=== PATIENT | male | born 1940 | race Caucasian/White ===

== ENCOUNTER 2022-05-15 01:38 | Outpatient (CLI) | payer BC, SELFPAY ==
[2022-05-15] MEDS: Barium Sulfate 2% W/V-Berry Smoothie 450 ML BTL PO ×2 (08:34→08:35)
[2022-05-15 08:50] LABS: BUN 28 mg/dL (7-18); CREATININE 1.1 mg/dL (0.70-1.30); Estimated GFR 67.02 (mL/min/1.73m2)
--- NOTE | 2022-05-15 10:00 | DI.CT_ITS ---
Exam(s) CT ABDOMEN PELVIS W EXAM: CT ABDOMEN PELVIS W CLINICAL HISTORY: LYMPHADENOPATHY, EVAL FOR CHANGES FROM CT 10/11/21. TECHNIQUE: Imaging Protocol: Axial computed tomography images with coronal and sagittal reformatted images were created and reviewed CONTRAST MATERIAL: Intravenous: Omnipaque 350 Contrast volume:100 ml Oral: yes / COMPARISON: CT CT CHEST WO from 04/11/[address] ABDOMEN PELVIS WO from 10/11/2021 FINDINGS: ABDOMEN: Lung Bases: Limited evaluation due to respiratory motion and dependent changes. Small nodules are ag ain noted at both lung bases. Heart is enlarged. Pacemaker leads noted Liver: Normal density. No measurable mass. Gallbladder and biliary tract: No radiodense calculus or dilation. Pancreas: Normal density, no abnormal calcifications or inflammatory process. Spleen: Normal. Kidneys: Normal size, contour and axis. No radiodense stones or obstructive uropathy. No masses seen. Adrenal glands: No masses seen. Abdominal Aorta: Abdominal portion non-dilated. PELVIS: Bladder: Diffuse wall thickening. Right lateral diverticulum. 3 millimeter stone in dependent porti on. Bowel: Large quantity of stool. Sigmoid diverticulosis. No evidence of diverticulitis no obstructio n or bowel wall thickening. Appendix normal. Peritoneal cavity: Interval increase in size of multiple mesenteric lymph nodes, the the largest now measuring 2.2 cm, compared with 1.3 cm on the previous exam. Stable size of retroperitoneal conglome ration of lymph nodes. No ascites, collection or mesenteric inflammatory response. Bones: Within normal limits for age. Reproductive organs: Prostate markedly enlarged. Lymph nodes: Unremarkable. Impression: Interval increase in size mesenteric lymph nodes. Stable appearance of retroperitoneal lymph nodes. Roughly stable appearance of bilateral lower lobe pulmonary nodules. RADIATION DOSE DELIVERED: 818.57mGy.cm Total DLP DATA REPOSITORY: All CT scans at this facility are submitted to the National Radiology Data Registry (NRDR) Dose Index Registry (DIR) with the [employer] (ACR). RADIATION OPTIMIZATION: All CT scans at this facility use at least one of these dose optimization te chniques: automated exposure control; mA and/or kV adjustment per patient size (includes targeted exa ms where dose is matched to clinical indication); or iterative reconstruction.
[2022-05-15] MEDS: Normal Saline - Diluent 50 ML VIAL IJ (10:11)
[2022-05-15] MEDS: Omnipaque 350 MG/ML 500 ML BTL-Imaging package 100 ML IJ (10:12)
[2022-05-15] MEDS: Normal Saline Flush 10 ML SYR IVP (10:13)
== END 2022-05-15 01:58 ==
PROVIDERS: PCP Internal Medicine; Visit Provider Internal Medicine
DX: R91.8 Other nonspecific abnormal finding of lung field (principal); R59.0 Localized enlarged lymph nodes
CPT/HCPCS: 84520; 74177; 82565

== ENCOUNTER 2022-09-28 11:44 | Emergency (ER) | payer BC, SELFPAY ==
--- NOTE | 2022-09-28 11:45 | DI.RAD_ITS ---
Exam(s) XR KNEE LT 3V AP,LAT,JO EXAM: XR KNEE LT 3V AP,LAT,JO CLINICAL HISTORY: blunt trauma. TECHNIQUE: 2D digital imaging was performed of the left knee. Three images were obtained. Merchant ,AP, lateral and PA tunnel views were obtained. COMPARISON: No exams were available for comparison FINDINGS: BONES: No acute fracture is present. No bony destructive lesion is seen. JOINTS: The knee is normally aligned. No joint effusion is seen. Mild degenerative changes are seen i n the knee with periarticular spurring and joint space narrowing most marked in the lateral femoral t ibial joint. SOFT TISSUE: There is soft tissue swelling anterior to the patella. IMPRESSION: Soft tissue swelling anterior to the patella but no fracture or dislocation. DATA REPOSITORY: RADIATION DOSE DELIVERED:
[2022-09-28 11:50] VITALS: BP 148/98; PULSE 65; RESP 16; TEMP 36.6; O2SAT 99
--- NOTE | 2022-09-28 12:00 | ED.GENADUL_ITS ---
Discharge Plan Disposition Patient Disposition: Home Discharge Details Clinical Impression: Traumatic hematoma of left knee Primary Care Provider: Mell Coffey ED Provider: Delonte Galindo Home Meds and New Rx's Prescriptions: Continued atorvastatin 80 mg tablet 80 mg PO DAILY zolpidem 5 mg tablet 5 mg PO QHS PRN sildenafil [Viagra] 100 mg tablet 100 mg PO DAILY PRN Rx Instructions: administer 30 minutes to 4 hours before activity Eliquis 5 mg tablet 5 mg PO BID finasteride 5 mg tablet 5 mg PO DAILY Patient Comments: TAKE 1 TABLET BY MOUTH EVERY DAY Discontinued tamsulosin 0.4 mg capsule 0.4 mg PO DAILY Patient Comments: no longer taking 09/28/22 CT albuterol sulfate [Proventil HFA] 90 mcg/actuation HFA aerosol inhaler 2 puff inhalation Q4H PRN Patient Comments: no longer taking 09/28/22 CT fluticasone propionate 50 mcg/actuation spray,suspension 1 spray intranasal DAILY Patient Comments: no longer taking 09/28/22 CT Rx Instructions: administer into each nostril Discharge Instructions Instructions: Hematoma (ED) Additional Instructions: Please use the Junior wrap to help provide some swelling relief. You may continue to take your normally prescribed medications and return for any new or significant worsening of symptoms otherwise follow-up with orthopedist if not improving in the next week. Referrals: [facility] [Provider Group] - 1 week (If not improving please call the office for arrangement of follow-up appointment) Medical Decision Making Patient presenting to the emergency department for chief complaint of left knee injury. Patient reports 1 week ago he had blunt trauma to the knee which since then he has noted increased swelling pain and discomfort along with ecchymosis. Patient is on apixaban and does state easily bruising but otherwise denies all other injury or trauma. Physical exam shows significant swelling and ecchymosis to the left anterior knee but I feel is mostly infrapatellar. Patient does have diffuse tenderness but is able to walk ambulate and fully flex and extend knee. Exam is otherwise unremarkable. We will perform radiological imaging given some bony tenderness to proximal tibia. Pending radiological imaging results I did speak with Dr. Jensen about patient case and do feel that patient can be followed up on outpatient basis for hematoma. He did recommend that patient use Junior wrap which he was provided. Due to delay in radiologist interpretation and significant length of stay will discharge patient given that he is weightbearing ambulatory and otherwise has no worrisome findings. Patient encouraged to call the orthopedic office if not following up in the next week or return for new or worsening symptoms. After discussion of diagnosis and plan of care patient has no further needs, questions, or concerns and states clear understanding to return to the emergency department for any worsening symptoms. After patient was discharged I did review radiological imaging that shows anterior soft tissue swelling but no other abnormal findings noted by ra diologist. I do not feel this changed his disposition. This documentation was generated using [employer] system, please disregard any oddities of phrase or misspellings. Imaging Data Radiologic Study: Attestation: I personally reviewed and interpreted this imaging study as follows: Imaging: X-Ray Radiologist's impression: Exam(s) XR KNEE LT 3V AP,LAT,JO EXAM: XR KNEE LT 3V AP,LAT,JO CLINICAL HISTORY: blunt trauma. TECHNIQUE: 2D digital imaging was performed of the left knee. Three images were obtained. Merchant,AP, lateral and PA tunnel views were obtained. COMPARISON: No exams were available for comparison FINDINGS: BONES: No acute fracture is present. No bony destructive lesion is seen. JOINTS: The knee is normally aligned. No joint effusion is seen. Mild degenerative changes are seen in the knee with periarticular spurring and joint space narrowing most marked in the lateral femoral tibial joint. SOFT TISSUE: There is soft tissue swelling anterior to the patella. IMPRESSION: Soft tissue swelling anterior to the patella but no fracture or dislocation. HPI General Mode of arrival: ambulatory . Date/Time Provider Initiated Documentation: 09/28/22 11:52 . Limitations to Documentation: no limitations . Information obtained by: patient and RN notes reviewed . History of Present Illness 82 year old M presents to the emergency department with the chief c omplaint of Left knee injury, described as moderate, Quality is described as aching, and is localized to the left and lower extremity. Patient reports no radiation. Patient started experiencing this week(s) (1) and it has been constant. No relieving factors improve symptom(s), No exacerbating factors reported . Patient notes no other symptoms.. Patient did receive the following treatments prior to arrival, none Related Data Home Medications Medication Instructions Recorded Confirmed atorvastatin 80 mg tablet 80 mg PO DAILY 10/05/21 09/28/22 sildenafil 100 mg tablet (Viagra) 100 mg PO DAILY PRN 10/05/21 09/28/22 zolpidem 5 mg tablet 5 mg PO QHS PRN 10/05/21 09/28/22 apixaban 5 mg tablet (Eliquis) 5 mg PO BID 10/06/21 09/28/22 finasteride 5 mg tablet 5 mg PO DAILY 09/28/22 09/28/22 Allergies Allergy/AdvReac Type Severity Reaction Status Date / Time Penicillins Allergy Verified 09/28/22 11:52 Sulfa (Sulfonamide Allergy Verified 09/28/22 11:52 Antibiotics) General Stated Complaint: Orthopedic MIK: 4 Review of Systems Narrative: 6 systems reviewed and unremarkable except what is marked below. Musculoskeletal Musculoskeletal: Reports as per HPI, Reports arthralgias, Reports joint swelling and Denies limited range of motion Integumentary/Breasts Skin/Breast: Reports unusual bruising Hematologic/Lymphatic Hematologic/Lymphatic: Reports easy bruising PFSH All Active Problems (Updated 09/28/22 @ 14:35 by Delonte Galindo NP) Traumatic hematoma of left knee (Acute) Impacted cerumen of both ears (Acute) Sensorineural hearing loss of both ears (Acute) Medical History Abnormal results of thyroid function studies Asthma with exacerbation Antoine's palsy Bronchitis Bursitis of right shoulder Cardiomyopathy Enlarged prostate with lower urinary tract symptoms (LUTS) Hyperlipidemia Inflammatory polyarthropathy Insomnia Lyme disease, unspecified Memory loss Nonrheumatic aortic (valve) stenosis Osteoarthritis of first carpometacarpal joint, unspecified Otalgia, right ear Other abnormality of red blood cells Paroxysmal A-fib SOB (shortness of breath) Transient global amnesia Social History Smoking/Tobacco Use Status: Never Smoking risk assessment performed?: Yes Alcohol Intake: current Alcohol Intake frequency: holidays/special occasions only Drug use: Never Substance use type: does not use Do you feel safe at home: Yes Do you feel safe in your relationship?: Yes Exam Const General: cooperative, no acute distress and not ill appearing Orientation: alert, awake and oriented x3 HENMT Mouth: moist mucous membranes Resp Effort & Inspection: normal respiratory effort, able to speak in complete sentences and no respiratory distress Skin General skin exam: no rashes or lesions noted Neuro General: patient alert, patient awake, patient oriented x3, moves all extremities and no focal motor deficits Extrem General: normal exam except as noted Left lower extremity: knee Details: tenderness Location: of the patella and of the proximal tibia, swelling Location: of the pre-patellar area and of the infrapatellar area, normal ROM and ecchymosis; no abrasions, no lacerations and no crepitus Course Vital Signs Vital signs: Vital Signs Temperature 36.6 C 09/28/22 11:50 Pulse 65 09/28/22 11:50 Respiratory Rate 16 09/28/22 11:50 Blood Pressure 148/98 H 09/28/22 11:50 Pulse Oximetry 99 09/28/22 11:50 Temperature 36.6 C 09/28/22 11:50 Temperature Source Temporal Artery Scan 09/28/22 11:50 Pulse 65 09/28/22 11:50 Respiratory Rate 16 09/28/22 11:50 Respiratory Effort Normal 09/28/22 11:52 Blood Pressure 148/98 H 09/28/22 11:50 Blood Pressure Position Sitting 09/28/22 11:50 Pulse Oximetry 99 09/28/22 11:50 Oxygen Delivery Method Room Air 09/28/22 11:50 Oxygen Flow Rate 0 09/28/22 11:50 Pain Level 2 09/28/22 11:50 PAWSS Have you Been Recently Intoxicated or Drunk Within the Last 30 days?: No Have you Ever Experienced Previous Episodes of Alcohol Withdrawal?: No Have you ever Experienced Withdrawal Seizures?: No Have you ever Experienced Delirium Tremens(DT)s?: No Have you ever undergone Alcohol Rehabilitation Treatment (i.e, inpt ot outpatient treatment programs)?: No Have you ever Experienced Blackouts?: No Have you ever Combined Alcohol with other Downers within the last 90 days?: No Have you ever Combined Alcohol with any other Substance of Abuse during the last 90 days?: No Result: 0
== END 2022-09-28 14:42 | disposition home or self-care (01) ==
PROVIDERS: Emergency Provider Nurse Practitioner Family; PCP Internal Medicine
DX: S80.02XA Contusion of left knee, initial encounter (principal); X58.XXXA Exposure to other specified factors, initial encounter
CPT/HCPCS: 73562; 99283

== ENCOUNTER 2022-11-03 11:39 | Emergency (ER) | payer BC, SELFPAY ==
[2022-11-03 11:43] VITALS: BP 113/96; PULSE 65; RESP 18; TEMP 36.4; O2SAT 99
--- NOTE | 2022-11-03 12:01 | ED.GENADUL_ITS ---
Discharge Plan Disposition Patient Disposition: Home Discharge Details Clinical Impression: Urinary tract infection Primary Care Provider: Mell Coffey ED Provider: Delonte Galindo Home Meds and New Rx's Prescriptions: New cephalexin 500 mg tablet 500 mg PO QID 7 Days Qty: 28 0RF Continued atorvastatin 80 mg tablet 80 mg PO DAILY zolpidem 5 mg tablet 5 mg PO QHS PRN sildenafil [Viagra] 100 mg tablet 100 mg PO DAILY PRN Rx Instructions: administer 30 minutes to 4 hours before activity Eliquis 5 mg tablet 5 mg PO BID finasteride 5 mg tablet 5 mg PO DAILY Patient Comments: TAKE 1 TABLET BY MOUTH EVERY DAY Discharge Instructions Instructions: Urinary Tract Infection in Men (ED) Additional Instructions: If you develop any new or significant worsening of symptoms feel free to return the emergency department for reassessment. The symptoms would include severe abdominal pain, nausea vomiting, fever chills, or flank pain. Otherwise take antibiotic as prescribed and for the full course. Stay well-hydrated and you can also consider use of cranberry juice to help expedite clearance of your bladder infection. Referrals: Mell Coffey [Primary Care Provider] - Medical Decision Making Patient presenting to the emergency department for chief complaint of urinary urgency, burning, and frequency. Patient states that this started about 1 week ago. He thought it was initially his prostate issues which she has had in the past with urinary retention but he has been voiding everything from his bladder and intermittently using self-catheterization but not getting much out. He still states burning urgency and frequency. Patient denies all other symptoms. Physical exam is unremarkable. I do suspect urinary tract infection but will scan bladder to see how much urine is present and then do straight cath in and out to obtain best specimen. Urinalysis does show signs of infection so will place patient on Keflex. Patient states he believes he has been on this in the past but given penicillin allergy will give first dose and monitor in the ED. Patient had no signs of reaction to Keflex so will prescribe 4 times daily given history of prostate issues with obstruction. Patient was bladder scanned and on staff did say there was only small residual left which I feel is reassuring and that patient does not need Wilcox catheter. After discussion of diagnosis and plan of care patient has no further needs, questions, or concerns and states clear understanding to return to the emergency department for any worsening symptoms. This documentation was generated using [employer] system, please disregard any oddities of phrase or misspellings. Lab Data Lab results reviewed: Yes I reviewed the patient's lab results. HPI General Mode of arrival: ambulatory . Date/Time Provider Initiated Documentation: 11/03/22 11:50 . Limitations to Documentation: no limitations . Information obtained by: patient and RN notes reviewed . History of Present Isael bal 82 year old M presents to the emergency department with the chief complaint of Urinary burning, frequency and urgency, described as moderate and similar to prior episodes, Patient started experiencing this week(s) (1) and it has been constant. No relieving factors improve symptom(s), No exacerbating factors reported . Patient did receive the following treatments prior to arrival, other (Self cath) Related Data Home Medications Medication Instructions Recorded Confirmed atorvastatin 80 mg tablet 80 mg PO DAILY 10/05/21 11/03/22 sildenafil 100 mg tablet (Viagra) 100 mg PO DAILY PRN 10/05/21 11/03/22 zolpidem 5 mg tablet 5 mg PO QHS PRN 10/05/21 11/03/22 apixaban 5 mg tablet (Eliquis) 5 mg PO BID 10/06/21 11/03/22 finasteride 5 mg tablet 5 mg PO DAILY 09/28/22 11/03/22 cephalexin 500 mg tablet 500 mg PO QID 7 days #28 tabs 11/03/22 Previous Rx's Medication Instructions Recorded cephalexin 500 mg tablet 500 mg PO QID 7 days #28 tabs 11/03/22 Allergies Allergy/AdvReac Type Severity Reaction Status Date / Time Penicillins Allergy Verified 09/28/22 11:52 Sulfa (Sulfonamide Allergy Verified 09/28/22 11:52 Antibiotics) General Stated Complaint: Urinary MIK: 3 Review of Systems Constitutional Constitutional: Denies body ache(s), Denies chills, Denies fever(s), Denies malaise and Denies weakness Cardiovascular Cardiovascular: Denies chest pain Respiratory Respiratory: Reports system reviewed and no additional complaints, except as documented Gastrointestinal Gastrointestinal: Denies abdominal pain, Reports constipation, Denies nausea and Denies vomiting Genitourinary Genitourinary: Reports as per HPI, Denies hematuria, Denies difficulty u rinating, Reports dysuria, Reports urinary frequency and Reports urinary urgency Neurologic Neurologic: Denies confusion and Denies weakness Psychiatric Psychiatric: Denies confusion PFSH All Active Problems (Updated 11/03/22 @ 14:04 by Delonte Galindo NP) Urinary tract infection (Acute) Wears hearing aid in both ears (Acute) Impacted cerumen of both ears (Acute) Sensorineural hearing loss of both ears (Acute) Medical History Abnormal results of thyroid function studies Asthma with exacerbation Antoine's palsy Bronchitis Bursitis of right shoulder Cardiomyopathy Enlarged prostate with lower urinary tract symptoms (LUTS) Hyperlipidemia Inflammatory polyarthropathy Insomnia Lyme disease, unspecified Memory loss Nonrheumatic aortic (valve) stenosis Osteoarthritis of first carpometacarpal joint, unspecified Otalgia, right ear Other abnormality of red blood cells Paroxysmal A-fib SOB (shortness of breath) Transient global amnesia Social History Smoking/Tobacco Use Status: Never Smoking risk assessment performed?: Yes Alcohol Intake: current Alcohol Intake frequency: holidays/special occasions only Drug use: Never Substance use type: does not use Housing: house Do you feel safe at home: Yes Do you feel safe in your relationship?: Yes Exam Const General: cooperative and no acute distress Orientation: alert, awake and oriented x3 Resp Effort & Inspection: normal respiratory effort and able to speak in complete sentences Auscultation: clear to auscultation bilaterally Cardio Rate: regular rate Rhythm: regular rhythm Heart Sounds: S1 normal and S2 normal GI Palpation: nontender Back/Spine/Pelvis Back: no CVA tenderness Neuro General: patient alert, patient awake and patient oriented x3 Extrem General: capillary refill normal Course Vital Signs Vital signs: Vital Signs Temperature 36.4 C 11/03/22 11:43 Pulse 65 11/03/22 11:43 Respiratory Rate 18 11/03/22 11:43 Blood Pressure 113/96 H 11/03/22 11:43 Pulse Oximetry 99 11/03/22 11:43 Temperature 36.4 C 11/03/22 11:43 Temperature Source Oral 11/03/22 11:43 Pulse 65 11/03/22 11:43 Respiratory Rate 18 11/03/22 11:43 Respiratory Effort Normal, Non-Labored 11/03/22 11:47 Blood Pressure 113/96 H 11/03/22 11:43 Blood Pressure Position Sitting 11/03/22 11:43 Pulse Oximetry 99 11/03/22 11:43 Oxygen Delivery Method Room Air 11/03/22 11:43 Oxygen Flow Rate 0 11/03/22 11:43
[2022-11-03 12:32] LABS: Bilirubin Small (Negative); Blood Large (Negative); Clarity Cloudy (Clear); Glucose Negative (Negative); Ketones 15 mg/dL (Negative); Leukocyte Esterase Large (Negative); Nitrite Positive (Negative); pH 5.5 (5-8)
[2022-11-03 12:38] LABS: RBC >50 HPF (0-2); WBC >50 HPF (0-5)
[2022-11-03 12:39] LABS: C & S Indicated? Yes
[2022-11-03] MEDS: Cephalexin 500 MG CAP PO (13:20)
[2022-11-03 14:18] VITALS: BP 122/80; PULSE 72; RESP 18; TEMP 37; O2SAT 99
[2022-11-03] MEDS: Cephalexin 500 MG CAP, 4 CAPS/BTL PO (14:19)
--- NOTE | 2022-11-07 08:45 | NUR.NOTE ---
Accessed pt chart to find antibiotic on discharge.Nursing Note:
== END 2022-11-03 16:27 | disposition home or self-care (01) ==
PROVIDERS: Emergency Provider Nurse Practitioner Family; PCP Internal Medicine
DX: N40.1 Benign prostatic hyperplasia with lower urinary tract symptoms (principal); R33.8 Other retention of urine; N39.0 Urinary tract infection, site not specified; I48.0 Paroxysmal atrial fibrillation; Z79.01 Long term (current) use of anticoagulants
CPT/HCPCS: 87077; 99283; 81003; 81015; 87086; 87186

== ENCOUNTER 2022-11-05 07:56 | Emergency (ER) | payer BC, SELFPAY ==
[2022-11-05 08:03] VITALS: BP 124/86; PULSE 65; RESP 16; TEMP 36.4; O2SAT 99
[2022-11-05 08:33] LABS: Clarity Clear (Clear)
[2022-11-05 08:45] LABS: Bacteria Rare HPF (Negative); C & S Indicated? Yes; Casts Negative LPF (Negative); Crystals Negative HPF (Negative); Epithelial Cells Few HPF (Negative); Mucus Trace (Negative); WBC >50 HPF (0-5)
--- NOTE | 2022-11-05 09:24 | ED.GENADUL_ITS ---
Discharge Plan Disposition Patient Disposition: Home Discharge Details Clinical Impression: Urinary tract infection Primary Care Provider: Mell Coffey ED Provider: Delonte Galindo Home Meds and New Rx's Prescriptions: New ciprofloxacin HCl [Cipro] 500 mg tablet 500 mg PO BID 5 Days Qty: 10 0RF Continued atorvastatin 80 mg tablet 80 mg PO DAILY zolpidem 5 mg tablet 5 mg PO QHS PRN sildenafil [Viagra] 100 mg tablet 100 mg PO DAILY PRN Rx Instructions: administer 30 minutes to 4 hours before activity Eliquis 5 mg tablet 5 mg PO BID finasteride 5 mg tablet 5 mg PO DAILY Patient Comments: TAKE 1 TABLET BY MOUTH EVERY DAY Discontinued cephalexin 500 mg tablet 500 mg PO QID 7 Days Qty: 28 0RF Discharge Instructions Instructions: Urinary Tract Infection in Men (ED) Additional Instructions: Please return to the emergency department if you have any new or significant worsening of symptoms otherwise continue to take your new antibiotic as prescribed and you may stop the previous antibiotic. As discussed please monitor for MD muscle pain, tendon pain, or side effects of the new antibiotic and if these occur please stop and contact your primary care provider. If not improving by Sunday or Sunday please contact your primary care provider for reassessment and repeat urinalysis or return to the emergency department if needed. Referrals: Mell Coffey [Primary Care Provider] - Discharge Data Discharge Date/Time-TO BE ENTERED AT DEPARTURE: 11/05/22 09:44 Medical Decision Making Patient presenting to the emergency department for chief complaint of continued burning and frequency of urination in spite of being on antibiotics. Patient was seen by myself 2 days ago and placed upon Keflex for urinary tract infection. Patient states he has been taking the medication as prescribed but has not had any significant benefit from the medication. He has been using cranberry juice and Azo as well. Patient denies any worsening of symptoms just lack of improvement. Physical exam is unremarkable no CVA tenderness, patient stable nontoxic in appearance. Repeat urinalysis was performed and was obscured by the color from the Azo patient was using. Did review urine culture from 2 days ago which did show E. coli infection that was pansensitive. Discussed with patient risk versus benefit of continuing medication versus changing to sergio quinolone given patient's allergies. After discussion patient stated he had been on Cipro in the past and was okay with the risk of the medication. We will start patient on Cipro given no improvement on ceftriaxone and do not feel that it is beneficial to have a change antibiotics within the same category. After discussion of diagnosis and plan of care patient has no further needs, questions, or concerns and states clear understanding to return to the emergency department for any worsening symptoms. This documentation was generated using [employer] dictation system, please disregard any oddities of phrase or misspellings. HPI General Mode of arrival: ambulatory . Date/Time Provider Initiated Documentation: 11/05/22 08:03 . Limitations to Documentation: no limitations . Information obtained by: patient and RN notes reviewed . History of Present Illness 82 year old M presents to the emergency department with the chief complaint of Burning with urination and frequency, Quality is described as burning, and is localized to the genitals. and it has been constant. No relieving factors improve symptom(s), No exacerbating factors reported . Patient notes no other symptoms.. Patient did receive the following treatments prior to arrival, none Related Data Home Medications Medication Instructions Recorded Confirmed atorvastatin 80 mg tablet 80 mg PO DAILY 10/05/21 11/05/22 sildenafil 100 mg tablet (Viagra) 100 mg PO DAILY PRN 10/05/21 11/05/22 zolpidem 5 mg tablet 5 mg PO QHS PRN 10/05/21 11/05/22 apixaban 5 mg tablet (Eliquis) 5 mg PO BID 10/06/21 11/05/22 finasteride 5 mg tablet 5 mg PO DAILY 09/28/22 11/05/22 ciprofloxacin HCl 500 mg tablet 500 mg PO BID 5 days #10 tabs 11/05/22 (Cipro) Previous Rx's Medication Instructions Recorded ciprofloxacin HCl 500 mg tablet 500 mg PO BID 5 days #10 tabs 11/05/22 (Cipro) Allergies Allergy/AdvReac Type Severity Reaction Status Date / Time Penicillins Allergy Verified 09/28/22 11:52 Sulfa (Sulfonamide Allergy Verified 09/28/22 11:52 Antibiotics) General Stated Complaint: Urinary MIK: 4 Review of Systems Constitutional Constitutional: Denies body ache(s), Denies chills, Denies fever(s), Denies malaise and Denies weakness Cardiovascular Cardiovascular: Denies chest pain Respiratory Respiratory: Reports system reviewed and no additional complaints, except as documented Gastrointestinal Gastrointestinal: Denies abdominal pain, Denies nausea and Denies vomiting Genitourinary Genitourinary: Reports as per HPI, Denies hematuria, Reports difficulty urinating, Reports dysuria and Reports urinary urgency Neurologic Neurologic: Denies confusion and Denies weakness Psychiatric Psychiatric: Denies confusion PFSH All Active Problems (Updated 11/05/22 @ 09:28 by Delonte Galindo NP) Urinary tract infection (Acute) Wears hearing aid in both ears (Acute) Impacted cerumen of both ears (Acute) Sensorineural hearing loss of both ears (Acute) Medical History Abnormal results of thyroid function studies Asthma with exacerbation Antoine's palsy Bronchitis Bursitis of right shoulder Cardiomyopathy Enlarged prostate with lower urinary tract symptoms (LUTS) Hyperlipidemia Inflammatory polyarthropathy Insomnia Lyme disease, unspecified Memory loss Nonrheumatic aortic (valve) stenosis Osteoarthritis of first carpometacarpal joint, unspecified Otalgia, right ear Other abnormality of red blood cells Paroxysmal A-fib SOB (shortness of breath) Transient global amnesia Social History Smoking/Tobacco Use Status: Never Smoking risk assessment performed?: Yes Alcohol Intake: current Alcohol Intake frequency: holidays/special occasions only Drug use: Never Substance use type: does not use Housing: apartment Do you feel safe at home: Yes Do you feel safe in your relationship?: Yes Exam Const General: cooperative and no acute distress Orientation: alert, awake and oriented x3 Resp Effort & Inspection: normal respiratory effort and able to speak in complete sentences Auscultation: clear to auscultation bilaterally Cardio Rate: regular rate Rhythm: regular rhythm Heart Sounds: S1 normal and S2 normal GI Palpation: nontender Back/Spine/Pelvis Back: no CVA tenderness Neuro General: patient alert, patient awake and patient oriented x3 Extrem General: capillary refill normal Course Vital Signs Vital signs: Vital Signs Temperature 36.4 C 11/05/22 08:03 Pulse 65 11/05/22 08:03 Respiratory Rate 16 11/05/22 08:03 Blood Pressure 124/86 11/05/22 08:03 Pulse Oximetry 99 11/05/22 08:03 Temperature 36.4 C 11/05/22 08:03 Pulse 65 11/05/22 08:03 Respiratory Rate 16 11/05/22 08:03 Blood Pressure 124/86 11/05/22 08:03 Pulse Oximetry 99 11/05/22 08:03 Oxygen Delivery Method Room Air 11/05/22 08:03 Oxygen Flow Rate 0 11/05/22 08:03 Lab/Test Results Lab/Test Results: 11/05/22 08:25 Urine - Reflex from Ua Urine Culture - Pending Laboratory Tests Range/Units 11/05/22 08:25 Urine Color (Yellow) [place] Urine Clarity (Clear) Clear Urine pH Not Applicable Ur Specific [place] (1.005-1.025) 1.020 Urine Protein Not Applicable Urine Ketones Not Applicable Urine Blood Not Applicable Urine Nitrite Not Applicable Urine Bilirubin Not Applicable Urine Urobilinogen Not Applicable Ur Leukocyte Esterase Not Applicable Urine RBC (0-2) HPF 10-20 H Urine WBC (0-5) HPF >50 H Ur Epithelial Cells (Negative) HPF Few Urine Crystals (Negative) HPF Negative Urine Bacteria (Negative) HPF Rare Urine Casts (Negative) LPF Negative Urine Mucus (Negative) Trace Ur Culture Indicated? Yes Urine Glucose Not Applicable
[2022-11-05] MEDS: Ciprofloxacin 500 MG TAB PO (09:42)
== END 2022-11-05 09:44 | disposition home or self-care (01) ==
PROVIDERS: Emergency Provider Nurse Practitioner Family; PCP Internal Medicine
DX: N39.0 Urinary tract infection, site not specified (principal)
CPT/HCPCS: 99283; 81003; 81015; 87086; 99284

== ENCOUNTER → 2022-12-29 00:31 | Outpatient (CLI) | payer BC, SELFPAY ==
[2022-12-29] MEDS: Barium Sulfate 2% W/V-Berry Smoothie 450 ML BTL PO ×2 (08:37)
[2022-12-29 08:52] LABS: CREATININE 1.1 mg/dL (0.70-1.30); Estimated GFR 66.61 (mL/min/1.73m2)
--- NOTE | 2022-12-29 10:01 | DI.CT_ITS ---
Exam(s) CT ABDOMEN PELVIS W EXAM: CT ABDOMEN PELVIS W CLINICAL HISTORY: LYMPHADENOPATHY R59.0 TECHNIQUE: Imaging Protocol: Axial computed tomography images with coronal and sagittal reformatted images were created and reviewed CONTRAST MATERIAL: Intravenous: Omnipaque 350 Contrast volume:100 mL Oral: Yes COMPARISON: CT CT ABDOMEN PELVIS WO from 10/11/[address] ABDOMEN PELVIS W from 05/15/2022 FINDINGS: ABDOMEN: Lung Bases: The distal ends of cardiac pacing device wires are seen. There nodules again seen in the lung bases. Liver: Normal density. No measurable mass. Portal, Superior Mesenteric, and Splenic Veins: Unremarkable. Gallbladder and Biliary Tract: No radiodense calculus or dilation. Pancreas: Normal density, no abnormal calcifications or inflammatory process. Spleen: Normal. Adrenals: No masses seen. Kidneys: Normal size, contour and axis. No radiodense stones or obstructive uropathy. No masses seen. Abdominal Aorta: Abdominal portion non-dilated. Atherosclerosis. Bowel: There is diverticulosis seen in the colon, but no evidence of acute diverticulitis. Appendix is unremarkable. There is no evidence of bowel wall thickening or bowel obstruction. Peritoneal Cavity: No ascites, collection or mesenteric inflammatory response. No free air. Lymph Nodes: There has been interval decrease in size of the largest lymph nodes seen in the mesenter y. It now measures 1.7 cm compared with 2.2 cm on the prior examination. There again seen several o ther mesenteric lymph nodes, but no increase in size of other lymph nodes is noted. Bones: Within normal limits for the patient's age. Soft Tissues: There are bilateral fat containing inguinal hernias. PELVIS: Bladder: There is diffuse thickening of the wall of the urinary bladder. There is a small diverticul um arising from the right aspect of the urinary bladder. This is likely secondary to the enlarged pr ostate gland and bladder outlet obstruction. Reproductive Organs: Marked enlargement of the prostate gland. Lymph Nodes: Within normal limits. Bones: Within normal limits for the patient's age. IMPRESSION: 1. Interval decrease in size of the largest mesenteric lymph nodes since 05/15/2022. No enlarged ingu inal lymph nodes are seen. 2. Persistent bilateral pulmonary nodules. RADIATION DOSE DELIVERED: 629.99mGy.cm Total DLP DATA REPOSITORY: All CT scans at this facility are submitted to the National Radiology Data Registry (NRDR) Dose Index Registry (DIR) with the [employer] (ACR). RADIATION OPTIMIZATION: All CT scans at this facility use at least one of these dose optimization te chniques: automated exposure control; mA and/or kV adjustment per patient size (includes targeted exa ms where dose is matched to clinical indication); or iterative reconstruction.
[2022-12-29] MEDS: Omnipaque 350 MG/ML 100 ML BTL IJ (10:13)
[2022-12-29] MEDS: Normal Saline - Diluent 50 ML VIAL IJ (10:13)
== END ==
PROVIDERS: Radiology Diagnostic Ultrasound; PCP Internal Medicine; Visit Provider Internal Medicine
DX: R91.8 Other nonspecific abnormal finding of lung field (principal)
CPT/HCPCS: 74177; 82565; J3490

== ENCOUNTER → 2023-05-01 14:03 | Outpatient (CLI) | payer BC, SELFPAY ==
--- NOTE | 2023-05-01 | DI.RAD_ITS ---
Exam(s) XR CHEST 2V PA LATERAL EXAM: XR CHEST 2V PA LATERAL CLINICAL HISTORY: SOB,R06.02,PERSIST COUGH,R05.3. TECHNIQUE: 2D digital imaging was performed. COMPARISON: CT CT CHEST WO from 04/11/2021 FINDINGS: 2 views: Sternotomy wires and bipolar left subclavian pacemaker noted. Lead tips in RA and right ventricle, u nchanged from CT scan of March 2021. Heart size is normal. The mediastinum is not widened. Left lung is clear. There is slightly increased markings in the medial right lung base which are pro bably vascular. There is blunting of the costophrenic angles consistent with small bilateral pleural effusions. No airspace pulmonary edema. No fractures. IMPRESSION: Small bilateral pleural effusions.No airspace pulmonary edema. DATA REPOSITORY: RADIATION DOSE DELIVERED:
== END ==
PROVIDERS: PCP Internal Medicine; Visit Provider Internal Medicine Pulmonary Disease
DX: J90 Pleural effusion, not elsewhere classified (principal)
CPT/HCPCS: 71046

== ENCOUNTER 2024-09-25 07:04 | Outpatient (CLI) | payer BC, SELFPAY ==
--- NOTE | 2024-09-25 | DI.RAD_ITS ---
Exam(s) XR CHEST 2V PA LATERAL EXAM: XR CHEST 2V PA LATERAL CLINICAL HISTORY: ACUTE COUGH, R05.9,? PNEUMONIA TECHNIQUE: 2D digital imaging was performed of the chest. Two images were obtained. PA and lateral views were obtained. COMPARISON: CR XR CHEST 2V PA LATERAL from 05/01/2023 FINDINGS: MEDIASTINUM: Normal. HEART: Normal. There has been interval placement of an aortic valve replacement. Pacing wires are st able in position. PULMONARY VASCULATURE: Normal. LUNGS: On the lateral view there appears to be an infiltrate in the left lower lobe. The right lung is clear. The lungs appear hyperinflated with flattened diaphragms suggesting underlying COPD. Plea se correlate clinically. PLEURAL SPACE: No pleural effusion or pneumothorax. BONE:Within normal limits for the patient's age. OTHER FINDINGS:Normal. IMPRESSION: Question of a left basilar infiltrate. DATA REPOSITORY: RADIATION DOSE DELIVERED:
== END 2024-09-25 07:24 ==
PROVIDERS: PCP Internal Medicine; Visit Provider Internal Medicine
DX: R05.9 Cough, unspecified (principal); R91.8 Other nonspecific abnormal finding of lung field
CPT/HCPCS: 71046

== ENCOUNTER → 2025-04-02 01:06 | Outpatient (CLI) | payer BC, SELFPAY ==
--- NOTE | 2025-04-02 12:30 | DI.US_ITS ---
APPROVED REPORT EXAM: Comprehensive 2D, Doppler, and color-flow Echocardiogram Patient Location: Out-Patient Ward Helper: Alicia Jorge RDCS (AE) Indications: S/P TAVR, Aortic valve stenosis with insufficiency, Etiology of cardiac valve disease unspecified. Other Information Study Quality: Adequate Conclusion Mild concentric left ventricular hypertrophy. Ejection fraction is 55%. Wall motion is normal Normal right ventricular size and function Both atria are mildly enlarged Device lead noted in the right heart Patient is status post transcatheter aortic valve replacement. Mean gradient is 8 mmHg Mild mitral annular calcification Moderate mitral and tricuspid regurgitation Estimated right ventricular systolic pressure is 28 mmHg Ascending aorta measures 4.0 cm Wall motion Left Ventricle The left ventricle is normal size. The left ventricular systolic function is normal. The left ventricular ejection fraction is within the normal range. Mild concentric left ventricular hypertrophy. There is normal LV segmental wall motion. There is no ventricular septal defect visualized. LVEF is 55%. Right Ventricle Right ventricle is grossly normal in size. The right ventricular systolic function is normal. Device lead is present in the right ventricle. Atria Left atrium is mildly dilated. Right atrium is mildly dilated. The interatrial septum is intact with no evidence for an atrial septal defect. Aortic Valve TAVR aortic valve present. Mitral Valve Mild mitral annular calcification. No evidence of mitral valve stenosis. Moderate mitral regurgitation. Tricuspid Valve The tricuspid valve is normal in structure. There is no tricuspid valve stenosis. Moderate tricuspid regurgitation. The RVSP is 28.3mmHg. Pulmonic Valve The pulmonary valve is normal in structure. There is no pulmonic valvular stenosis. There is no pulmonic valvular regurgitation. Great Vessels The aortic root is normal in size. The ascending aorta is moderately dilated. Aortic arch is normal in caliber. IVC is normal in size and collapses >50% with inspiration. Pericardium There is no pericardial effusion. 2D Dimensions IVSD d PLAX 1.30 cm M: 0.6-1.2 Ao Root d 3.20 cm M: 3.1 - 3.7 LVPW d PLAX 1.32 cm M: 0.6 - 1.2 Ao Asc Diam d 4.00 cm M: 2.6 - 3.4 LVID d PLAX 4.40 cm M: 4.2 - 5.8 LVDs 3.10 cm M: 2.5 - 4.0 LV EF Teichholz 56.8 % FS 29.59 % LV EDV (Teich) 87.0 mL LV ESV (Teich) 37.5 mL M-Mode TAPSE 2.42 cm (M/F) >1.7 Auto EF LV EDV A4C 92.8 mL LV EDV A2C 102.4 mL LV EDV BP 99.6 mL LV ESV A4C 41.8 mL LV ESV A2C 45.6 mL LV ESV BP 44.5 mL LVEF(%) A4C 55.0 % LVEF(%) A2C 55.5 % LVEF(%) BP 55.3 % LV SV A4C 51.0 ml LV SV A2C 56.8 ml LV SV BP 55.1 ml LV CO A4C 2.8 L/min LV CO A2C 3.5 L/min LV CO BP 3.2 L/min HR A4C 55.29 BPM HR A2C 61.31 BPM LV EDV Index (BP) LA Volume LA Length A4C 5.1 cm LA Length A2C 5.2 cm LA Area A4C s 20.44 cm2 LA Area A2C s 16.78 cm2 LA Vol A4C A-L 69.84 mL LA Vol A2C A-L 45.98 mL LA Vol Biplane A-L 57.3 mL LA Vol/BSA A4C A-L LA Vol/BSA A2C A-L LA Vol/BSA BP A-L 30.3 mL/m2 LA Vol A4C MOD 59.8 mL LA Vol A2C MOD 43.3 mL LA Vol BP MOD 50.8 mL RA Volume RA Area A4C 16.5 cm2 RA ESV A4C (A-L) 47.9mL RA Vol/BSA A4C A-L RA Length A4C 4.8 cm RA ESV A4C (MOD) 43.3mL LV Diastology MV E' medial 0.044 (>0.07 m/s) MV E Vmax 0.54 (0.4-1.3 m/s) MV E/E' MED 12.46 (<14) MV A Vmax 0.85 (0.4-1.3 m/s) MV E' lateral 0.067 (>0.1 m/s) E/A Ratio 0.6 MV E/E' LAT 8.13 (<14) MV E' Average 0.055 m/s MV E/E'(average) 9.84 Aortic Valve AoV Vmax 1.97 m/s LVOT Vmax 0.94 m/s AoV Peak Grad 15.5 mmHg LVOT Peak Grad 3.5 mmHg AoV Area (Vmax) 1.49 cm2 LVOT VTI 0.202 m AoV VTI 0.414 m LVOT Mean Grad 1.9 mmHg AoV Mean [place]. 1.36 m/s LVOT SV 63.31 mL AoV Mean Grad 8.4 mmHg LVOT Diam s 1.95 cm AoV Area (VTI) 1.53 cm2 AV Regurg Peak Gr. 15.47 mmHg Velocity Ratio 0.48 Mitral Valve MV DT 283 (160-240 msec) MV Vmax TIPS 0.82 m/s MV Mean Grad 0.9 (<2mmHg) MV VTI 0.286 m Pulmonary Valve PV Vmax 0.94 (0.5-1.5 m/s) RVOT Vmax 0.66 m/s PV Peak Grad 3.5 mmHg RVOT Peak Gr. 1.8 mmHg PV Mean [place] 0.67 m/s RVOT VTI 0.147 m PV Mean Grad 2.0 mmHg RVOT Mean Gr. 0.9 mmHg Tricuspid Valve RA Pressure 3.00 mmHg TR Vmax 2.51 m/s TV S' 0.14 m/s TR Peak Grad 25.2 mmHg RVSP (TR) 28.3 mmHg
== END ==
LOC: DI 01:06
PROVIDERS: PCP Internal Medicine; Visit Provider Physician Assistant
DX: I51.7 Cardiomegaly (principal)
CPT/HCPCS: 93306

== ENCOUNTER 2025-04-02 13:21 | Outpatient (CLI) | payer BC, SELFPAY ==
--- NOTE | 2025-04-02 13:15 | RT.EKG_ITS ---
APPROVED REPORT Exam: Resting ECG Reason for Exam: AV STENOSIS Patient Location: O HR:59 bpm ECG Measurements Heart Rate 59 AXIS HI 170 P [id number] QRSd 161 QRS 92 QT 482 T -64 QTc 478 Conclusion A-V dual-paced complexes w/ some inhibition...other complexes also detected No further analysis attempted due to paced rhythm
== END 2025-04-02 13:22 | disposition home or self-care (01) ==
PROVIDERS: PCP Internal Medicine; Visit Provider Physician Assistant
DX: I35.2 Nonrheumatic aortic (valve) stenosis with insufficiency (principal)
CPT/HCPCS: 93005; 93010